=== PATIENT | female | born 1960 | race Two or more races ===

== ENCOUNTER 2021-08-02 12:20 | Emergency (ER) | payer SELFPAY ==
[~2021-08-02] VITALS: Ht 160 cm; Wt 80.3 kg
[2021-08-02] MEDS ORDERED: SODIUM CHLORIDE 0.9% 1000ML 1,000 ML IV STA (12:44)
[2021-08-02] MEDS ORDERED: ACETAMINOPHEN 325 MG TAB PO ONE (13:00)
[2021-08-02 13:16] LABS: BASOPHILS % 0.3 % (0.0-1.0); EOSINOPHILS % 0.3 % (0.0-6.0); HEMATOCRIT 39.1 % (34.2-44.1); HEMOGLOBIN 13.3 g/dL (12.0-16.0); LYMPHOCYTES # (AUTO) 0.9 (1.0-3.2); LYMPHOCYTES % 23.3 % (18.0-39.1); MEAN CORPUSCULAR HEMOGLOBIN 30.2 pg (28-32); MEAN CORPUSCULAR VOLUME 88.7 fL (81-99); MONOCYTES # (AUTO) 0.5 (0.2-0.8); MONOCYTES % 14.1 % (4.4-11.3); NEUTROPHILS # (AUTO) 2.4 (2.1-6.9); NEUTROPHILS % 61.7 % (38.7-80.0); PLATELET COUNT 192 x10e3/uL (140-360); RED BLOOD COUNT 4.41 x10e6/uL (3.6-5.1); RED CELL DISTRIBUTION WIDTH 13.2 % (11.7-14.4)
[2021-08-02 13:38] LABS: ALBUMIN 4.2 g/dL (3.5-5.0); ANION GAP 14.3 mmol/L (8-16); CALCIUM 8.7 mg/dL (8.4-10.2); CREATININE, SERUM 0.81 mg/dL (0.57-1.11); POTASSIUM 4.3 mmol/L (3.5-5.1)
[2021-08-02 14:14] LABS: COLOR,URINE YELLOW (YELLOW)
[2021-08-02 14:15] LABS: BACTERIA,URINE RARE /HPF; CLARITY,URINE CLEAR (CLEAR); EPITHELIAL CELLS,URINE RARE /LPF; KETONES,URINE NEGATIVE (NEGATIVE); LEUKOCYTE ESTERASE ,URINE NEGATIVE (NEGATIVE); NITRITE,URINE NEGATIVE (NEGATIVE); PROTEIN,URINE DIPSTICK NEGATIVE (NEGATIVE); RBC,URINE 0-5 /HPF (0-5); URINE UROBILINOGEN 0.2 mg/dL (0.2 - 1); WBC,URINE (MAN) 0-5 /HPF (0-5)
[2021-08-02] MEDS ORDERED: CASIRIVIMAB/IMDEVIMAB 10 ML in SODIUM CHLORIDE 0.9% 100 ML IV ONE (14:15)
[2021-08-02] MEDS ORDERED: ACETAMINOPHEN 325 MG TAB ONE (19:18)
== END 2021-08-02 19:21 | disposition home or self-care (01) ==
LOC: ER 13:19
DX: R50.9 Fever, unspecified (principal); R05 Cough; U07.1 COVID-19
CPT/HCPCS: 36415; 71045; 80053; 81001; 83690; 85025; 93005; 99283; J7030; J7050; U0002

== ENCOUNTER 2021-08-04 11:31 | Emergency (ER) | payer SELFPAY ==
[~2021-08-04] VITALS: Ht 154.9 cm; Wt 80.3 kg
[2021-08-04] MEDS ORDERED: ONDANSETRON HCL 4 MG ORAL DISINTEGRATING TAB ONE (12:57)
[2021-08-04] MEDS ORDERED: ONDANSETRON HCL 4 MG ORAL DISINTEGRATING TAB PO ONE (13:00)
[2021-08-04] MEDS ORDERED: TESSALON PERLE100 MG PO (14:19)
[2021-08-04] MEDS ORDERED: DEXAMETHASONE4 MG PO (14:19)
[2021-08-04] MEDS ORDERED: ZITHROMAX250 MG PO (14:19)
[2021-08-04] MEDS ORDERED: ONDANSETRON ODT4 MG PO (14:24)
== END 2021-08-04 14:40 | disposition home or self-care (01) ==
LOC: FSED 11:33
DX: R05 Cough (principal); R11.2 Nausea with vomiting, unspecified; U07.1 COVID-19; J18.9 Pneumonia, unspecified organism
CPT/HCPCS: 71046; 99283; Q0162

== ENCOUNTER 2023-01-02 19:46 | Emergency (ER) | payer OTHER, SELFPAY ==
[~2023-01-02] VITALS: Ht 154.9 cm; Wt 80.3 kg
[~2023-01-02 19:46] MED LIST: DEXAMETHASONE4 MG PO; ONDANSETRON ODT4 MG PO; TESSALON PERLE100 MG PO; ZITHROMAX250 MG PO
[2023-01-02] MEDS ORDERED: IBUPROFEN 600 MG TAB PO STA (21:20)
[2023-01-02] MEDS ORDERED: IBUPROFEN 600 MG TAB ONE (21:20)
[2023-01-02] MEDS ORDERED: PREDNISONE20 MG PO (22:28)
[2023-01-02] MEDS ORDERED: VENTOLIN HFA18 GM INH (22:28)
[2023-01-02] MEDS ORDERED: AZITHROMYCIN250 MG PO (22:28)
== END 2023-01-02 22:30 | disposition home or self-care (01) ==
LOC: ER 20:10
DX: R50.9 Fever, unspecified (principal); U07.1 COVID-19; R05.9 Cough, unspecified
CPT/HCPCS: 71046; 99283; U0002